=== PATIENT | male | born 1985 | race Caucasian/White ===

== ENCOUNTER 2023-02-19 15:40 | Day surgery (SDC) | payer SELFPAY ==
[2023-02-19] VITALS (10 sets, daily range): BP systolic 133–162; BP diastolic 76–96; PULSE 79–98; RESP 14–18; TEMP 36.6–37.9; O2SAT 94–97; BMI 25.1
--- NOTE | 2023-02-19 16:16 | CRLHL7_ITS ---
For Patients: As a result of the 21st Century Cures Act, medical imaging exams and procedure reports are released immediately into your electronic medical record. You may view this report before your referring provider. If you have questions, please contact your health care provider. INDICATION: LT NECK PAIN/ SORE THROAT TECHNIQUE: CT of the neck with 95 ml iodinated contrast agent. Coronal and sagittal reconstructions are included. COMPARISON: 08/10/2017 CT neck FINDINGS: Enlargement of the left palatine tonsil containing a peripherally enhancing collection measuring 3.6 x 1.9 cm AP x TR x 3 cm CC tonsillar/peritonsillar abscess. This is on the same side as the 2017 exam. Mild enlargement of multiple level 2 and level 3 lymph nodes likely reactive in etiology. The oral cavity, nasopharyngeal, and hypopharyngeal mucosal spaces are normal. The supraglottic, glottic and infraglottic larynx are unremarkable. The airway including the trachea is normal and is patent. The parotid glands, submandibular and sublingual glands are normal in appearance. The thyroid gland is normal in appearance. The vascular structures opacify normally with contrast material. Scattered mild cervical spondylosis without significant neural foraminal stenosis. Moderate neural foramina narrowing at C5-6 due to uncovertebral joint hypertrophy. Mild narrowing at C4-5. Reversal of normal cervical lordosis. Disc osteophyte complex at C4-5, C5-6 and C6-7 without significant spinal canal stenosis. No suspicious lytic or blastic osseous lesions. Visualized paranasal sinuses and mastoid air cells are clear. Visualized orbital and intracranial contents are unremarkable. Supraclavicular regions, mediastinum and soft tissues of the imaged chest wall are unremarkable. Visualized portions of the upper lungs are clear. IMPRESSION: 1. Enlargement of the left palatine tonsil containing a peripherally enhancing collection measuring 3.6 x 1.9 cm AP x TR x 3 cm CC, consistent with tonsillitis and tonsillar/peritonsillar abscess. This is on the same side as the 2017 exam. 2. There is moderate transverse narrowing of the oropharyngeal airway. 3. Mild enlargement of multiple level 2 and level 3 lymph nodes likely reactive in etiology. No suppurative lymph nodes. Please note that all CT scans at this facility use dose modulation, iterative reconstruction, and/or weight-based dosing when appropriate to reduce radiation dose to as low as reasonably achievable. Dictated by Raúl Huang MD @ 02/19/2023 6:30:37 PM (Electronically Signed)
--- NOTE | 2023-02-19 16:19 | ED_ITS ---
HPI - General Adult General Chief complaint: Sore Throat Stated complaint: Possible Tonsil Abscess Time Seen by Provider: 02/19/23 15:46 History of Present Illness HPI narrative: Patient is a pleasant 37 year white male has had a left-sided peritonsillar abscess in the past. He has had a sore throat for a few days negative strep test couple days ago, continues to have difficulty with sleep swallowing, most his pain is on the left side of his throat. He has been unable open his mouth fully. He describes this as a significant sore throat. No rigors. He has a temperature 100.3? Related Data Home Medications Medication Instructions Recorded Confirmed lacosamide 50 mg tablet 50 mg PO BID 02/17/23 02/19/23 levetiracetam 1,000 mg tablet mg PO 02/17/23 02/17/23 Previous Rx's Medication Instructions Recorded Magic Mouthwash 10 ml PO BID-TID #120 mL 02/17/23 (Lidocaine/Benadryl/Maalox) 120 mL suspension naproxen 500 mg tablet 500 mg PO BID 7 days #14 tabs 02/17/23 Allergies Allergy/AdvReac Type Severity Reaction Status Date / Time No Known Drug Allergies Allergy Verified 02/19/23 16:08 Review of Systems Status of ROS: Reports: 6 or more systems reviewed and unremarkable except as noted in History and below [facility] Social History Smoking Status: Never smoker Do you use any of these nicotine containing products: None Second hand tobacco smoke exposure: No How often do you have a drink containing alcohol: never AUDIT-C Alcohol total score: 0 Non-prescribed substance use: denies use service: No Exam Narrative: Exam Narrative: Objective: In general the patient is in mild distress and discomfort vital signs show elevated temperature HEENT shows trismus, his mouth shows some mild redness of the posterior pharynx bilaterally little more swollen on the left neck is supple pulses regular neurologic is grossly nonfocal good peripheral perfusion noted. rapid strep test here earlier this week was negative Const: Vital Signs, click to edit/add: Vital Signs - 24 hr 02/19/23 16:02 Temperature 100.3 F H Pulse Rate [Pulse Oximeter] 83 Respiratory Rate 16 Blood Pressure [Le ft Upper Arm] 133/89 Pulse Oximetry 97 Oxygen Delivery Me thod Room Air Course Vital Signs Vital signs: Initial Vital Signs Temperature 100.3 F H 02/19/23 16:02 Temperature Source Temporal Artery Scan 02/19/23 16:02 Pulse Rate 83 02/19/23 16:02 Respiratory Rate 16 02/19/23 16:02 Blood Pressure 133/89 02/19/23 16:02 Blood Pressure Mean 103 02/19/23 16:02 Blood Pressure Position Sitting 02/19/23 16:02 Pulse Oximetry 97 02/19/23 16:02 Oxygen Delivery Method Room Air 02/19/23 16:02 Vital Signs Temperature 100.3 F H 02/19/23 16:02 Pulse Rate 83 02/19/23 16:02 Respiratory Rate 16 02/19/23 16:02 Blood Pressure 133/89 02/19/23 16:02 Pulse Oximetry 97 02/19/23 16:02 Oxygen Delivery Method Room Air 02/19/23 16:02 Temperature 100.3 F H 02/19/23 16:02 Pulse Rate 83 02/19/23 16:02 Respiratory Rate 16 02/19/23 16:02 Blood Pressure 133/89 02/19/23 16:02 Pulse Oximetry 97 02/19/23 16:02 Oxygen Delivery Method Room Air 02/19/23 16:02 Medical Decision Making MDM Narrative Medical decision making narrative: Patient is a 37 year white male with history of a left peritonsillar abscess with recurrent left-sided severe sore throat pain. He has trismus. He has a fever. At this point will get a CT scan of his neck, labs laboratory studies, IV fluid, IV Solu-Medrol, IV morphine, IV Unasyn. ENT consult as needed. Addendum: [place] [address] he has a low-grade temperature, he does have on CT scan left peritonsillar abscess 3.6 x 1.9 cm x 3 cm. He has been given IV Solu-Medrol IV pain control and IV Unasyn. He feels some improvement. He is able to swallow without severe pain. Will contact Dr. Maier for ENT about treatment patient last ate yesterday did take a sip of water on arrival here Lab Data Labs: Lab Results 02/19/23 02/19/23 Range/Units 06:47 16:42 WBC 16.28 H (4.50-11.00) K/uL RBC 5.06 (4.30-5.90) m/uL Hgb 14.8 (13.5-17.5) gm/dL Hct 44.0 (37.0-53.0) % MCV 87 (80-100) fL MCH 29 (26-34) pg MCHC 34 (32-36) gm/dL RDW Coeff of Gonzalez 12.4 (11.5-15.5) % Plt Count 340 (140-440) K/uL Neut % (Auto) 86.7 H (42.0-72.0) % Lymph % (Auto) 5.3 L (20-44) % Preston % (Auto) 7.4 (0.0-11.0) % Eos % (Auto) 0.3 (0.0-7.0) % Baso % (Auto) 0.1 (0.0-3.0) % Neut # (Auto) 14.10 H (1.7-7.0) K/uL Lymph # (Auto) 0.90 (0.90-2.90) K/uL Preston # (Auto) 1.20 H (0.00-0.90) K/UL Eos # (Auto) 0.00 (0.00-0.50) K/uL Baso # (Auto) 0.00 (0.00-0.30) K/uL Sodium 136 (135-149) mmol/L Potassium 4.4 (3.6-5.1) mmol/L Chloride 100 (96-114) mmol/L Carbon Dioxide 25 (20-32) mmol/L BUN 10 (5-24) mg/dL Creatinine 0.8 (0.5-1.5) mg/dL Estimated Creat Clear 140.10 Estimated GFR 115 ml/min Glucose 91 (60-115) mg/dL Calcium 9.1 (8.4-10.6) mg/dL C-Reactive Protein 8.2 H (0.5-1.0) mg/dL SARS-CoV-2 (PCR) Negative SARS-CoV-2 (Negative) Discharge Plan Discharge Clinical Impression: Pharyngitis Prescriptions: No Action levetiracetam 1,000 mg tablet PO lacosamide 50 mg tablet 50 mg PO BID Magic Mouthwash (Lidocaine/Benadryl/Maalox) 120 mL suspension 10 ml PO BID-TID Qty: 120 0RF Rx Instructions: Lidocaine Viscous 2 % mucosal solution 40 mL; Maalox 200 mg-200 mg-20 mg/5 mL oral suspension 40 mL; Benadryl 12.5 mg/5 mL oral elixir 40 mL; Per 120 mL SWISH AND SPIT. MAY COMPOUND IF FIRST PRODUCT IS NOT AVAILABLE. naproxen 500 mg tablet 500 mg PO BID 7 Days Qty: 14 0RF
[2023-02-19] MEDS: MORPHINE 4 MG/ML INJ IVP (16:43)
[2023-02-19] MEDS: AMPICILLIN/SULBACTAM 3 GM in 0.9 % SODIUM CHLORIDE Mini-bag 100 ML IVPB (16:43)
[2023-02-19] MEDS: METHYLPREDNISOLONE SOD SUCC 62.5 MG/ML (125) 125 MG IVP (16:43)
[2023-02-19] MEDS: 0.9 % SODIUM CHLORIDE 1000 ml 1,000 ML 6000 ML IV (16:43)
[2023-02-19 17:02] LABS: Basophils Percent Auto 0.1 % (0.0-3.0); Eosinophils Percent Auto 0.3 % (0.0-7.0); Hemoglobin* 14.8 gm/dL (13.5-17.5); Immature Granulocytes Pct Auto 0.2 %; Lymphocytes Percent Auto 5.3 % (20-44); Mean Corpuscular HGB Conc 34 gm/dL (32-36); Mean Corpuscular Hemoglobin 29 pg (26-34); Mean Corpuscular Volume 87 fL (80-100); Monocytes Percent Auto 7.4 % (0.0-11.0); Neutrophils Percent Auto 86.7 % (42.0-72.0); Platelet Count* 340 K/uL (140-440); RDW Coefficient of Variation % 12.4 % (11.5-15.5); Red Blood Count 5.06 m/uL (4.30-5.90); White Blood Count* 16.28 K/uL (4.50-11.00)
[2023-02-19 17:45] LABS: Slide Review Reflex No
[2023-02-19 17:48] LABS: Chloride* 100 mmol/L (96-114); Sodium* 136 mmol/L (135-149)
[2023-02-19 17:49] LABS: Potassium* 4.4 mmol/L (3.6-5.1)
[2023-02-19 17:51] LABS: Creatinine* 0.8 mg/dL (0.5-1.5); Estimated Glomerular Filt Rate 115 ml/min
[2023-02-19 17:52] LABS: Blood Urea Nitrogen* 10 mg/dL (5-24); Calcium* 9.1 mg/dL (8.4-10.6); Carbon Dioxide* 25 mmol/L (20-32); Glucose* 91 mg/dL (60-115)
[2023-02-19 17:55] LABS: C Reactive Protein* 8.2 mg/dL (0.5-1.0)
[2023-02-19 19:22] LABS: SARS PCR* Negative SARS-CoV-2 (Negative)
--- NOTE | 2023-02-19 21:00 | W.ANESCHARGE ---
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
--- NOTE | 2023-02-20 00:23 | PC.NURSE ---
Pt's prescriptions sent to pharmacy which isn't open until morning. Pt was sent home with an [facility] prescription of 4 tabs of oxycodone 5mg, 1-2 tabs as needed every 4-6 hours for pain control overnight until he fills his prescription in the AM. Prescription was given by Dr. Samina Mercer.
== END 2023-02-19 23:32 | disposition home or self-care (01) ==
LOC: ED 19:34 → SS 20:28 → MEDSURG 21:17
PROVIDERS: Emergency Provider Family Medicine; Visit Provider Otolaryngology
PROC: (CPT 42960; principal; 2023-02-19 18:45)
DX: J36 Peritonsillar abscess (principal)
CPT/HCPCS: 42700; 00170; 36415; 70491; 80048; 85025; 86140; 87070; 87075; 87205; 87635; 99140; 99284; J0295; J0330; J1100; J2250; J2270; J2405; J2704; J2930; J3010; J3490; J7030; Q9967

== ENCOUNTER 2024-07-28 13:23 | Outpatient (CLI) | payer OTHER, SELFPAY | END 2024-07-28 13:24 | disposition home or self-care (01) | PROVIDERS: Visit Provider Family Medicine | DX: Z01.818 Encounter for other preprocedural examination (principal); G40.909 Epilepsy, unspecified, not intractable, without status epilepticus; Z13.6 Encounter for screening for cardiovascular disorders | CPT/HCPCS: 80061; 80076; 80175; 80177 ==

== ENCOUNTER 2025-01-04 11:48 | Emergency (ER) | payer BC, SELFPAY ==
[2025-01-04] VITALS (9 sets, daily range): BP systolic 138–163; BP diastolic 81–112; PULSE 49–71; RESP 16–18; TEMP 36.1; O2SAT 94–98; BMI 26.4
--- OUTSIDE RECORDS SUMMARY | 2025-01-04 11:51 | XMS_ITS | Clinical Summary ---
Author Organization [facility] Address [address] [place] [address] Care Team Providers Care Business Information Analyst Name Role Phone Pcp, No Primary Care Provider Unavailabl e Allergies No known active allergies Medications levETIRAcetam (KEPPRA) 500 mg tablet Take 2,000 mg by mouth. Active Active Problems Problem Noted Date Diagnosed Date ACNE 10/17/2004 MONONUCLEOSIS, INFECTIOUS 03/20/2000 Immunizations Name Administration Dates Next Due DTP 03/31/1985,1983,1983 ,1983 Hepatitis B (Peds) 12/08/2000,07/02/2000, 000 MMR 05/28/1996,09/14/1984 Oral Polio Vaccine 03/31/1985,1983, 983,1983 Td (Age >=7 Years) 12/16/1995 Family History Medical History Relation Name Comments Genetic Other 1 Diabetes.~Thyro id disease. 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 Gender Identity Not on file Sexual Orientation Not on file Obstetrics History Last Filed Vital Signs Vital Sign Reading Time Taken Comments Blood Pressure 145/78 07/01/2021 6:49 PM CDT Pulse 70 07/01/2021 6:49 PM CDT Temperature 36.7 C (98.1 F) 07/01/2021 6:49 PM CDT Respiratory Rate 18 07/01/2021 6:49 PM CDT Oxygen Saturation 99% 07/01/2021 6:49 PM CDT Inhaled Oxygen Concentration - - Weight 81.6 kg (180 lb) 07/01/2021 6:49 PM CDT Height 185.4 cm (6' 1) 07/01/2021 6:49 PM CDT Body Mass Index 23.75 07/01/2021 6:49 PM CDT Plan of Treatment Health Maintenance Due Date Last Done Comments Tdap 1994 Depression screening for age 12+ 1995 HIV for age 15-65 1998 Hepatitis C screening for ag e 18-79 2001 Tetanus booster 12/16/2005 12/16/1995 Lipids for age 35-44 2018 BMI (ht and wt on same day) for age 18+ 07/01/2022 07/01/2021 COVID-19 vaccine series (2023- season) 2024 Influenza for age 9-49 07/04/2024 Pneumococcal series for age 6-49 Aged Out No longer eligible based on patient's age to complete this topic Insurance [facility] Care Teams Business Information Analyst Relationship Specialty Start Date End Date Pcp, No . PCP - General 10/16/23
--- OUTSIDE RECORDS SUMMARY | 2025-01-04 11:51 | XMS_ITS | Clinical Summary ---
Author Organization [facility] Address [address] [place] [id number] Care Team Providers Care Correctional Officer Chief Name Role Phone Xavi Rondon MD Primary Care Provider + Allergies No known active allergies Medications Multiple Vitamins-Minera ls (MULTIVITAL PO) Take 1 tablet by mouth daily Active levETIRAcetam (KEPPRA) 500 MG tablet Take 2,000 mg by mouth 2 times daily Active Cholecalciferol 3000 UNITS TABS Take 3,000 Units by mouth daily Active metoclopramide (REGLAN) 5 MG tablet Take 2 tablets (10 mg) by mouth 3 times daily as needed (nausea) 10 tablet 06/12/2022 Active Active Problems Problem Noted Date Diagnosed Date Status epilepticus 05/20/2017 Resolved Problems Problem Noted Date Diagnosed Date Resolved Date Seizure 12/26/2017 12/26/2017 Social History Tobacco Use Types Packs/Day Years Used Date Smoking Tobacco: Former Smokeless Tobacco: Never Alcohol Use Standard Drinks/Week Comments Yes 0 (1 standard drink = 0.6 oz pur e alcohol) Adolescent Education Answer Date Record ed Getting School Help Needed Not on file 08/02 Sex and Gender Information Value Date Recorded Sex Assigned at Not on file 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 Gender Identity Not on file Sexual Orientation Not on file Last Filed Vital Signs Vital Sign Reading Time Taken Comments Blood Pressure 128/84 06/12/2022 10:15 PM CDT Pulse 62 06/12/2022 10:15 PM CDT Temperature 36.6 C (97.9 F) 06/12/2022 5:39 PM CDT Respiratory Rate 18 06/12/2022 10:15 PM CDT Oxygen Saturation 99% 06/12/2022 10:15 PM CDT Inhaled Oxygen Concentration - - Weight 84.2 kg (185 lb 10 oz) 12/26/2017 3:00 AM CHIEF CRNA Height 185.4 cm (6' 1) 12/26/2017 1:08 AM CHIEF CRNA Body Mass Index 24.49 12/26/2017 1:08 AM CHIEF CRNA Plan of Treatment Health Maintenance Due Date Last Done Comments ADVANCE CARE PLANNING 1983 ANNUAL REVIEW OF HM ORDERS 1983 YEARLY PREVENTIVE VISIT 1986 DTAP/TDAP/TD IMMUNIZATION (2 - Tdap) 12/17/1995 12/16/1995 HIV SCREENING 1998 HEPATITIS C SCREENING 2001 LIPID 2023 COVID-19 Vaccine ( season) 2024 INFLUENZA VACCINE (#1) 2024 PHQ-2 (once per calendar year) 2024 GLUCOSE 06/12/2025 06/12/2022, 2 01/2018, 12/26/2017, Additional history exists ZOSTER IMMUNIZATION (1 of 2) 2033 RSV VACCINE (1 - 1-dose 75+ series) 2058 HEPATITIS B IMMUNIZATION Completed 001, 07/02/2000, 06/03/2000 HPV IMMUNIZATION Aged Out No longer e ligible based on patient's age to complete this topic MENINGITIS IMMUNIZATION Aged Out No l onger eligible based on patient's age to complete this topic Pneumococcal Vaccine: Pediatrics (0 to 5 Years) and At-Risk Patients (6 to 49 Years) Aged Out No longer eligible based on patient's age to complete this topic RSV MONOCLONAL ANTIBODY Aged Out No l onger eligible based on patient's age to complete this topic Procedures Procedure Name Priority Date/Time Associated Diagnosis Comments COMPREHENSIVE METABOLIC PANEL STAT 06/12/2022 6:51 PM CDT from Last 3 Months or Most Recently Relevant to Health Maintenance Results * (ABNORMAL) Comprehensive metabolic panel (06/12/2022 6:51 PM CDT) Sodium 139 136 - 145 mmol/L 06/12/2022 7:27 PM CDT LABORATORY Potassium 4.0 3.4 - 5.3 mmol/L 06/12/2022 7:27 PM CDT LABORATORY Comment:Specimen slightly he molyzed, potassium may be falsely elevated. Creatinine 0.74 0.67 - 1.17 mg/dL 06/12/2022 7:27 PM CDT LABORATORY Urea Nitrogen 15.2 6.0 - 20.0 mg/dL 06/12/2022 7:27 PM T LABORATORY Chloride 102 98 - 107 mmol/L 06/12/2022 7:27 PM CDT LABORATORY Carbon Dioxide (CO2) 23 22 - 29 mmol/L 06/12/2022 7:27 PM CDT LABORATORY Anion Gap 14 7 - 15 mmol/L 06/12/2022 7:27 PM T LABORATORY Glucose 124(H) 70 - 99 mg/dL 06/12/2022 7:27 PM CDT LABORATORY Calcium 9.6 8.6 - 10.0 mg/dL 06/12/2022 7:27 PM CDT LABORATORY Protein Total 7.4 6.4 - 8.3 g/dL 06/12/2022 7:27 PM CDT LABORATORY Albumin 4.9 3.5 - 5.2 g/dL 06/12/2022 7:27 PM CDT LABORATORY Bilirubin Total 0.6 <=1.2 mg/dL 06/12/2022 7:27 PM CDT LABORATORY Alkaline Phosphatase 63 40 - 129 U/L 06/12/2022 7:27 PM CDT LABORATORY AST 26 10 - 50 U/L 06/12/2022 7:27 PM CDT LABORATORY Comment:Specimen is hemolyze d which can falsely elevate AST. Analysis of a non-hemolyzed specimen may result in a lower value. ALT 45 10 - 50 U/L 06/12/2022 7:27 PM CDT LABORATORY GFR Estimate >90 >60 mL/min/1.7 3m2 06/12/2022 7:27 PM CDT LABORATORY Comment:Effective October 042020 eGFRcr in adults is calculated using the 2020 CKD-EPI creatinine equation which includes age and gender (Adam et al., NEJM, DOI: 10.1056/HHVLtp9274100) Blood STRUCTURE OF RIGHT UPPER LIMB / Unknown Venipuncture / Unknown 06/12/2022 6:51 PM CDT 06/12/2022 6:54 PM CDT us Moustapha Amado PA-C LAB - BLOOD ORDERABLES Final Result LABORATORY [facility] [address] Lab (1st floor, no room number) [place] [address], [facility] [phone] from Last 3 Months or Most Recently Relevant to Health Maintenance Insurance [facility] Advance Directives For more information, please contact: [phone] * Full Code (Latest Code Status on File) Date Activated Date Inactivated Comments 12/26/2017 3:50 AM 12/26/2017 6:08 PM * Full Code Date Activated Date Inactivated Comments 05/20/2017 9:41 PM 05/23/2017 5:57 PM Care Teams Correctional Officer Chief Relationship Specialty Start Date End Date Xavi Rondon MD PCP - General 10/10/17
--- NOTE | 2025-01-04 12:08 | ED.GENADULT ---
HPI - General Adult General Chief complaint: Nausea/Vomiting Stated complaint: extreme L side and back pain, diarrhea, vomiting Time Seen by Provider: 01/04/25 12:07 History of Present Illness HPI narrative: patient is having severe abdominal pain on the LLQ. has been rating to left flank. has been having diarrhea, vomiting. hx of seizure and vomited medication up. 39-year-old man presenting to the emergency department with concern of left lower abdominal pain. Not radiating into his back. This is 2nd day and has only been escalating. Began vomiting this morning along with diarrhea as well. No hematochezia or hematemesis described. No fever. Underlying history of seizure disorder and has been unable to keep his meds down. Mid left abdominal pain is the major issue. Related Data Home Medications ?Medication ?Instructions ?Recorded ?Confirmed levetiracetam 1,000 mg tablet 1,500 mg PO Q12H 02/17/23 01/04/25 lamotrigine 100 mg tablet 100 mg PO BID 01/04/25 01/04/25 Previous Rx's ?Medication ?Instructions ?Recorded hyoscyamine sulfate 0.125 mg tablet 0.25 mg (2 x 0.125 mg) PO QID PRN 01/04/25 Abdominal cramping #20 tabs Allergies Allergy/AdvReac Type Severity Reaction Status Date / Time No Known Drug Allergies Allergy Verified 01/04/25 13:11 Review of Systems Status of ROS: Reports: 6 or more systems reviewed and unremarkable except as noted in History and below PFSH PFSH Surgical History S/P left inguinal hernia repair ?Z98.890 - Other specified postprocedural states (ICD-10) ?Z87.19 - Personal history of other diseases of the digestive system (ICD-10) History of peritonsillar abscess drainage ?Z98.890 - Other specified postprocedural states (ICD-10) Social History Smoking Status: Never smoker Do you use any of these nicotine containing products: None Second hand tobacco smoke exposure: No How often do you have a drink containing alcohol: never AUDIT-C Alcohol total score: 0 Non-prescribed substance use: denies use service: No Exam Narrative: Exam Narrative: Looks quite uncomfortable. Prefers to keep his eyes closed. Breathing little tremorous. Lungs appear to be clear. Heart is in elevated rate and regular rhythm. Mouth is moist. Little blackening to the top of tongue. Abdomen is with present bowel sounds is diffusely quite tender. He has guarding in the left mid abdomen and tender to percussion left flank as well. Extremities are well perfused. No edema. Const: Vital Signs, click to edit/add: Vital Signs - 24 hr 01/04/25 11:58 01/04/25 13:32 01/04/25 14:02 Temperature 96.9 F L Pulse Rate 70 60 Pulse Rate [Pulse Oximeter] 67 Respiratory Rate 18 Blood Pressure 162/111 H 142/100 H Blood Pressure [Ri ght Upper Arm] 146/102 H Pulse Oximetry 94 98 98 Oxygen Delivery Me thod Room Air 01/04/25 14:33 01/04/25 15:01 01/04/25 15:31 Temperature Pulse Rate 68 68 57 L Pulse Rate [Pulse Oximeter] Respiratory Rate 16 Blood Pressure 159/95 H 138/81 158/106 H Blood Pressure [Ri ght Upper Arm] Pulse Oximetry 96 94 96 Oxygen Delivery Me thod 01/04/25 16:02 01/04/25 16:31 01/04/25 16:45 Temperature Pulse Rate 51 L 49 L 71 Pulse Rate [Pulse Oximeter] Respiratory Rate Blood Pressure 156/111 H 163/112 H Blood Pressure [Ri ght Upper Arm] Pulse Oximetry 97 96 96 Oxygen Delivery Me thod Documenting provider has reviewed patient's vital signs: yes Course Vital Signs Vital signs: Initial Vital Signs Temperature 96.9 F L 01/04/25 11:58 Temperature Source Temporal Artery Scan 01/04/25 11:58 Pulse Rate 67 01/04/25 11:58 Respiratory Rate 18 01/04/25 11:58 Blood Pressure 146/102 H 01/04/25 11:58 Blood Pressure Mean 116 H 01/04/25 11:58 Blood Pressure Position Sitting 01/04/25 11:58 Pulse Oximetry 94 01/04/25 11:58 Oxygen Delivery Method Room Air 01/04/25 11:58 Vital Signs Temperature 96.9 F L 01/04/25 11:58 Pulse Rate 67 01/04/25 11:58 Respiratory Rate 18 01/04/25 11:58 Blood Pressure 146/102 H 01/04/25 11:58 Pulse Oximetry 94 01/04/25 11:58 Oxygen Delivery Method Room Air 01/04/25 11:58 Temperature 96.9 F L 01/04/25 11:58 Pulse Rate 71 01/04/25 16:45 Respiratory Rate 16 01/04/25 15:01 Blood Pressure 163/112 H 01/04/25 16:31 Pulse Oximetry 96 01/04/25 16:45 Oxygen Delivery Method Room Air 01/04/25 11:58 Medications Administered Medications: Discontinued Medications Generic Name Dose Route Start Last Admin Trade Name Freq PRN Reason Stop Dose Admin Hydromorphone HCl 0.5 mg 01/04/25 14:29 01/04/25 14:38 Hydromorphone 0.5 Mg/0.5 Ml Inj IVP 01/04/25 14:30 0.5 mg ONCE ONE Administration Hyoscyamine 0.25 mg 01/04/25 15:47 01/04/25 15:57 Hyoscyamine Sulfate 0.125 Mg Tab SUBLINGUAL 01/04/25 15:48 0.25 mg ONCE ONE Administration Sodium Chloride 1,000 mls @ 1,000 mls/hr 01/04/25 12:16 01/04/25 14:06 0.9 % Sodium Chloride 1000 Ml IV 01/04/25 13:15 Infused .Q1H ONE Infusion Lactated Ringer's 1,000 mls @ 1,000 mls/hr 01/04/25 13:59 01/04/25 15:03 Lactated Ringers 1000 Ml IV 01/04/25 14:58 Infused .Q1H ONE Infusion Levetiracetam 2,000 mg/ Sodium 120 mls @ 480 mls/hr 01/04/25 14:29 01/04/25 15:05 Chloride IVPB 01/04/25 14:30 Infused ONCE ONE Infusion Ketamine HCl 20 mg/ Sodium 100.2 mls @ 200.4 mls/hr 01/04/25 15:47 01/04/25 16:45 Chloride IVPB 01/04/25 15:48 Infused ONCE ONE Infusion Ketorolac Tromethamine 30 mg 01/04/25 12:16 01/04/25 12:42 Ketorolac 30 Mg/Ml Inj IVP 01/04/25 12:17 30 mg ONCE ONE Administration Lorazepam 0.5 mg 01/04/25 14:29 01/04/25 14:41 Lorazepam 2 Mg/Ml Inj IVP 01/04/25 14:30 0.5 mg ONCE ONE Administration Morphine Sulfate 4 mg 01/04/25 12:16 01/04/25 12:44 Morphine 4 Mg/Ml Inj IVP 01/04/25 12:17 4 mg ONCE ONE Administration Ondansetron HCl 4 mg 01/04/25 12:16 01/04/25 12:41 Ondansetron 2 Mg/Ml Inj IVP 01/04/25 12:17 4 mg ONCE ONE Administration Medical Decision Making MDM Narrative Medical decision making narrative: Appears to have some gastroenteritis. Possible colitis. I suspect some degree of the guarding is related to stress related pain. Evaluate for ureteral stone and colic or urinary tract infection. INDICATION: Severe left mid abdominal pain with nausea vomiting and diarrhea. COMPARISON: None. TECHNIQUE: CT of the abdomen and pelvis with intravenous contrast. Multiplanar axial, coronal, and sagittal reformats were reconstructed. Contrast: 98 mL Isovue 370. FINDINGS: Lung bases: Mild bibasilar atelectasis. Liver: In segment 6 there is a 2.5 centimeter liver lesion that has nodular discontinuous peripheral hyperenhancement. In a young patient without any history of malignancy or risk factors for primary hepatic malignancy, this is consistent with a benign hepatic hemangioma. No other liver lesions. Minimal fatty infiltration at the falciform ligament. Patent hepatic vasculature. Normal liver morphology. Gallbladder and bile ducts: Normal gallbladder. No bile duct dilation. Pancreas: Normal. Spleen: Normal. Adrenal glands: Normal. Kidneys: Normal parenchyma. No cyst or solid mass. No calculi. No urinary tract dilation. Urinary bladder: Normal. Pelvis: No cyst or mass. Vessels: Normal. Bowel: Very minimal mucosal hyperenhancement in the descending colon with mild mucosal edema and no overall wall thickening or adjacent inflammatory stranding. No pneumatosis. No dilated or inflamed small bowel. Normal appendix. Mild stool burden. Lymph nodes: No adenopathy. Peritoneum: No ascites. Abdominal wall: Left inguinal hernia that originates lateral to the epigastric vessels. Contains a small amount of fat and no bowel. Bones: No fractures. No focal worrisome bone lesions. IMPRESSION: 1. Very mild appearing colitis without ischemia or obstruction. No findings specific to inflammatory bowel disease. 2. There is a 2.5 centimeter liver lesion. In a young patient without any history of malignancy or risk factors for primary hepatic malignancy, appearance is consistent with a benign hepatic hemangioma. If further imaging is clinically warranted, MR abdomen without and with IV contrast liver mass protocol can be obtained. Please note that all CT scans at this facility use dose modulation, iterative reconstruction, and/or weight-based dosing when appropriate to reduce radiation dose to as low as reasonably achievable. Dictated by Dina Farooq MD @ 01/04/2025 1:27:12 PM I have reviewed labs and imaging with Mr. Winn. Notes known history of hemangioma in his liver. No reason to suggest that colitis related to more of an inflammatory bowel disorder. No recent antibiotics to predisposed to C diff. Is still uncomfortable. Somewhat tense. I think it would be prudent to dose at least some of his antiepileptic medication. Ordered for 2 g of Keppra. Still with nausea and pain. Will be treating with Ativan as well and low dose of Dilaudid appears to have abdominal pain secondary to colitis. Labs are overall reassuring with mildly elevated lactate and white count. Did temporarily improve. Return though of nausea and pain. Given a dose of hyoscyamine and pain dose ketamine. Nausea transiently escalated but overall is improved vertically with regard to pain. Tolerating juice box and Jell-O. Stable vitals and I think safe for discharge. See patient discharge plan for further discussion Focus on hydration. Slow advance of diet over the next 24-36 hours. Diluted juices, soup broth, Jell-O, toast, crackers, toast. If needed for diarrhea as long as no blood in your stool or fever, can take loperamide. Can take ibuprofen or acetaminophen (acetaminophen up to 1000 mg per dose) for pain. Prescribing Zofran and Percocet from [facility]. Remember that each tablet of Percocet contains 325 mg of acetaminophen. Return for intractable diarrhea or vomiting, uncontrolled pain, associated fever Medical Records Medical records reviewed: Yes I reviewed the patient's medical records Lab Data Lab results reviewed: Yes I reviewed the patient's lab results Labs: Lab Results 01/04/25 01/04/25 Range/Units 12:29 15:00 WBC 11.70 H (4.50-11.00) K/uL RBC 5.74 (4.30-5.90) m/uL Hgb 16.8 (13.5-17.5) gm/dL Hct 49.3 (37.0-53.0) % MCV 86 (80-100) fL MCH 29 (26-34) pg MCHC 34 (32-36) gm/dL RDW Coeff of Gonzalez 13.1 (11.5-15.5) % Plt Count 354 (140-440) K/uL Neut % (Auto) 80.8 H (42.0-72.0) % Lymph % (Auto) 13.1 L (20-44) % Hale % (Auto) 4.7 (0.0-11.0) % Eos % (Auto) 0.8 (0.0-7.0) % Baso % (Auto) 0.1 (0.0-3.0) % Neut # (Auto) 9.50 H (1.7-7.0) K/uL Lymph # (Auto) 1.50 (0.90-2.90) K/uL Hale # (Auto) 0.50 (0.00-0.90) K/UL Eos # (Auto) 0.10 (0.00-0.50) K/uL Baso # (Auto) 0.00 (0.00-0.30) K/uL Abs Immat Gran (auto) 0.10 (0.00-0.30) K/uL Imm/Tot Granulo (auto) 0.5 % Sodium 138 (135-149) mmol/L Potassium 4.2 (3.6-5.1) mmol/L Chloride 102 (96-114) mmol/L Carbon Dioxide 24 (20-32) mmol/L Anion Gap 12 (7-15) mEq/L BUN 18 (5-24) mg/dL Creatinine 1.0 (0.5-1.5) mg/dL Estimated Creat Clear 109.86 Estimated GFR 97 ml/min Glucose 121 H (60-115) mg/dL Lactate 2.0 H (0.5-1.9) mmol/L Calcium 9.5 (8.4-10.6) mg/dL C-Reactive Protein < 0.5 L (0.5-1.0) mg/dL SARS-CoV-2 (PCR) Negative SARS-CoV-2 (Negative) Influenza Type A (PCR) Negative PCR FLU A (Negative) Influenza Type B (PCR) Negative PCR FLU B (Negative) RSV (PCR) Negative PCR RSV (Negative) Discharge Plan Discharge Clinical Impression: Abdominal pain, Colitis, Dehydration Patient Disposition: Home w/ Parent or Adult Condition: Improved Additional Instructions: Focus on hydration. Slow advance of diet over the next 24-36 hours. Diluted juices, soup broth, Jell-O, toast, crackers, toast. If needed for diarrhea as long as no blood in your stool or fever, can take loperamide. Can take ibuprofen or acetaminophen (acetaminophen up to 1000 mg per dose) for pain. Prescribing Zofran and Percocet from [facility]. Remember that each tablet of Percocet contains 325 mg of acetaminophen. Return for intractable diarrhea or vomiting, uncontrolled pain, associated fever Prescriptions: New hyoscyamine sulfate 0.125 mg tablet 0.25 mg PO QID PRN (Reason: Abdominal cramping) Qty: 20 0RF No Action levetiracetam 1,000 mg tablet 1,500 mg PO Q12H lamotrigine 100 mg tablet 100 mg PO BID Follow Up/Referrals: Provider,Not a Local [Primary Care Provider] - Stand Alone Forms: [employer] Info Instructions
--- OUTSIDE RECORDS SUMMARY | 2025-01-04 12:37 | XMS_ITS | Clinical Summary ---
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 Gender Identity Not on file Sexual Orientation [...] (185 lb 10 oz) 12/26/2017 3:00 AM CARPET INSPECTOR FINISHED Height 185.4 cm (6' 1) 12/26/2017 1:08 AM CARPET INSPECTOR FINISHED Body Mass Index 24.49 12/26/2017 1:08 AM CARPET INSPECTOR FINISHED Plan of Treatment Health Maintenance Due Date [...] and gender (Adam et al., NEJM, DOI: [id number]) Blood STRUCTURE OF RIGHT UPPER LIMB / Unknown Venipuncture / Unknown 06/12/2022 6:51 PM CDT 06/12/2022 6:54 PM CDT us Moustapha Amado PA-C LAB - BLOOD ORDERABLES Final Result LABORATORY [facility] [address] Lab (1st floor, no room number) [place] [address], [facility] [phone] from Last 3 Months or Most Recently Relevant to Health Maintenance Insurance [facility] Advance Directives For more information, please contact: [phone] * Full Code (Latest Code Status on File) Date Activated Date Inactivated Comments 12/26/2017 3:50 AM 12/26/2017 6:08 PM * Full Code Date Activated Date Inactivated Comments 05/20/2017 9:41 PM 05/23/2017 5:57 PM Care Teams Radio Station Engineer Relationship Specialty Start Date End Date Xavi Rondon MD PCP - General 10/10/17
--- OUTSIDE RECORDS SUMMARY | 2025-01-04 12:37 | XMS_ITS | Clinical Summary ---
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 Care Teams Hotel Office Manager Relationship Specialty Start Date End Date Pcp, No . PCP - General 10/16/23
[2025-01-04 12:38] LABS: Basophils Percent Auto 0.1 % (0.0-3.0); Eosinophils Percent Auto 0.8 % (0.0-7.0); Hematocrit 49.3 % (37.0-53.0); Hemoglobin* 16.8 gm/dL (13.5-17.5); Immature Granulocytes Pct Auto 0.5 %; Lymphocytes Percent Auto 13.1 % (20-44); Mean Corpuscular HGB Conc 34 gm/dL (32-36); Mean Corpuscular Hemoglobin 29 pg (26-34); Mean Corpuscular Volume 86 fL (80-100); Monocytes Percent Auto 4.7 % (0.0-11.0); Neutrophils Percent Auto 80.8 % (42.0-72.0); Platelet Count* 354 K/uL (140-440); RDW Coefficient of Variation % 13.1 % (11.5-15.5); Red Blood Count 5.74 m/uL (4.30-5.90)
[2025-01-04 12:39] LABS: Slide Review Reflex No
[2025-01-04] MEDS: 0.9 % SODIUM CHLORIDE 1000 ml 1,000 ML IV (12:39)
[2025-01-04] MEDS: ONDANSETRON 2 MG/ML inj 4 MG IVP (12:41)
[2025-01-04] MEDS: KETOROLAC 30 MG/ML inj IVP (12:42)
[2025-01-04] MEDS: MORPHINE 4 MG/ML INJ IVP (12:44)
[2025-01-04 12:56] LABS: Chloride* 102 mmol/L (96-114); Potassium* 4.2 mmol/L (3.6-5.1); Sodium* 138 mmol/L (135-149)
[2025-01-04 12:58] LABS: Blood Urea Nitrogen* 18 mg/dL (5-24); Est. Creatinine Clearance* 109.86; Estimated Glomerular Filt Rate 97 ml/min
[2025-01-04 12:59] LABS: Anion Gap 12 mEq/L (7-15); Calcium* 9.5 mg/dL (8.4-10.6); Carbon Dioxide* 24 mmol/L (20-32); Glucose* 121 mg/dL (60-115)
[2025-01-04 13:04] LABS: C Reactive Protein* < 0.5 mg/dL (0.5-1.0)
[2025-01-04] MEDS: LACTATED RINGERS 1000 ML 1,000 ML IV (14:10)
[2025-01-04] MEDS: HYDROmorphone 0.5 mg/0.5 ml inj IVP (14:38)
[2025-01-04] MEDS: LORazepam 2 MG/ML inj 0.5 MG IVP (14:41)
[2025-01-04 15:50] LABS: PCR FLU A Negative PCR FLU A (Negative); PCR FLU B Negative PCR FLU B (Negative); PCR RSV Negative PCR RSV (Negative); SARS PCR* Negative SARS-CoV-2 (Negative)
[2025-01-04] MEDS: HYOSCYAMINE SULFATE 0.125 MG TAB 0.25 MG SUBLINGUAL (15:57)
[2025-01-04] MEDS: KETAMINE 50 MG/0.5 ML 20 MG in 0.9 % SODIUM CHLORIDE 100 ml 100 ML 200.4 MG IVPB (15:58)
== END 2025-01-04 17:12 | disposition home or self-care (01) ==
PROVIDERS: Emergency Provider Family Medicine
DX: R10.9 Unspecified abdominal pain (principal); K52.9 Noninfective gastroenteritis and colitis, unspecified; E86.0 Dehydration
CPT/HCPCS: 36415; 74177; 80048; 81001; 83605; 85025; 86140; 87631; 96365; 96375; 99284; 99285; A9270; J1171; J1885; J1953; J2060; J2270; J2405; J3490; J7030; J7120; Q9967

== ENCOUNTER 2025-03-20 14:55 | Day surgery (SDC) | payer BC, SELFPAY ==
[2025-03-20] VITALS (21 sets, daily range): BP systolic 100–166; BP diastolic 47–98; PULSE 57–99; RESP 14–20; TEMP 37.3–38.1; O2SAT 93–99; BMI 27.3
--- NOTE | 2025-03-20 15:26 | ED_ITS ---
HPI - General Adult General Date Seen: 03/20/25 Chief complaint: Sore Throat Stated complaint: abscess in throat Time Seen by Provider: 03/20/25 15:17 History of Present Illness HPI narrative: Patient is a 39-year-old man who is here with pain in the left side of his throat. It has been hurting for about 5 days, seen in clinic a few days ago and started on Bactrim but he says he is continuing to get worse. He does have a history of peritonsillar abscess with surgical drainage x2, this feels similar. He can not open his mouth as well as normal, has had fevers up to 101 at home. He says he has not eaten anything in 3 days although he has been trying to get in some fluids. Last time they drained his abscess he says they recommended taking on his tonsils but he did have good insurance at the time so he declined. He told me he did not have other significant health history but I do note prior history of seizure disorder on his medical history. He has been taking ibuprofen and Tylenol for pain. He does not smoke or drink. Related Data Home Medications ?Medication ?Instructions ?Recorded ?Confirmed levetiracetam 1,000 mg tablet 1,500 mg PO Q12H 02/17/23 03/20/25 lamotrigine 100 mg tablet 100 mg PO BID 01/04/25 03/20/25 Previous Rx's ?Medication ?Instructions ?Recorded amoxicillin 875 mg-potassium 1 tab PO BID 10 days #20 tabs 03/15/25 clavulanate 125 mg tablet Allergies Allergy/AdvReac Type Severity Reaction Status Date / Time No Known Drug Allergies Allergy Verified 03/20/25 16:23 Review of Systems Status of ROS: Reports: 6 or more systems reviewed and unremarkable except as noted in History and below [facility] Medical History (Updated 03/20/25 @ 16:29 by Rebeca Mcpherson MD) Peritonsillar abscess ?J36 - Peritonsillar abscess (ICD-10) Surgical History S/P left inguinal hernia repair ?Z98.890 - Other specified postprocedural states (ICD-10) ?Z87.19 - Personal history of other diseases of the digestive system (ICD-10) History of peritonsillar abscess drainage ?Z98.890 - Other specified postprocedural states (ICD-10) Social History Smoking Status: Never smoker Do you use any of these nicotine containing products: None Second hand tobacco smoke exposure: No How often do you have a drink containing alcohol: never AUDIT-C Alcohol total score: 0 Non-prescribed substance use: denies use service: No Exam Narrative: Exam Narrative: Vital signs reviewed In general, alert, nontoxic mid age man. He is slightly shaky, he says this is because he does not like hospitals and also he has not eaten in several days. Head: Normocephalic, atraumatic. Eyes: Sclera clear. Pupils equal and reactive. ENT: Mucous membranes moist. Trismus, posterior pharyngeal erythema with edema and asymmetric swelling in the left posterior pharynx. Exam somewhat limited by trismus. Airway patent. Neck: Supple without significant adenopathy but he does have tenderness and a little bit of swelling noted on the left. No stridor. Heart: Regular rate and rhythm without murmur. Lungs: Clear. No increased work of breathing, crackles or wheezes. Abdomen: Soft, nontender to palpation. Extremities: Well perfused, pulses intact. No significant edema. Neurologic: Alert, conversant. Speech fluent, face symmetric. Moves all extremities equally. Skin: Warm, dry well perfused. Affect: Normal. Const: Vital Signs, click to edit/add: Vital Signs - 24 hr 03/20/25 15:07 03/20/25 15:40 03/20/25 15:50 Temperature 100.0 F H Pulse Rate [Pulse Oximeter] 99 62 57 L Respiratory Rate 16 16 16 Blood Pressure [Ri ght Upper Arm] 166/94 H 141/81 H 100/47 L Pulse Oximetry 96 99 97 Oxygen Delivery Me thod Room Air Nasal Cannula 03/20/25 16:00 Temperature Pulse Rate [Pulse Oximeter] 84 Respiratory Rate 16 Blood Pressure [Ri ght Upper Arm] 137/79 Pulse Oximetry 95 Oxygen Delivery Me thod Room Air Course Course ED Course: Will place an IV here, give morphine, Zofran, L of IV saline. CT soft tissue neck ordered with contrast along with basic labs. Case discussed with Dr. Munroe given concern for peritonsillar abscess on the left. Dr. Munroe and actually came and evaluated the patient, decided against a CT as patient clinically does appear to have an abscess. White count mildly elevated at 12.6, other labs pending at this time. He did not actually get any meds as they were talking with him and then took him to the OR. Hemodynamically stable, no additional complaints. Vital Signs Vital signs: Initial Vital Signs Temperature 100.0 F H 03/20/25 15:07 Temperature Source Temporal Artery Scan 03/20/25 15:07 Pulse Rate 99 03/20/25 15:07 Respiratory Rate 16 03/20/25 15:07 Blood Pressure 166/94 H 03/20/25 15:07 Blood Pressure Mean 118 H 03/20/25 15:07 Pulse Oximetry 96 03/20/25 15:07 Oxygen Delivery Method Room Air 03/20/25 15:07 Vital Signs Temperature 100.0 F H 03/20/25 15:07 Pulse Rate 99 03/20/25 15:07 Respiratory Rate 16 03/20/25 15:07 Blood Pressure 166/94 H 03/20/25 15:07 Pulse Oximetry 96 03/20/25 15:07 Oxygen Delivery Method Room Air 03/20/25 15:07 Temperature 100.0 F H 03/20/25 15:07 Pulse Rate 84 03/20/25 16:00 Respiratory Rate 16 03/20/25 16:00 Blood Pressure 137/79 03/20/25 16:00 Pulse Oximetry 95 03/20/25 16:00 Oxygen Delivery Method Room Air 03/20/25 16:00 Medications Administered Medications: Discontinued Medications Generic Name Dose Route Start Last Admin Trade Name Freq PRN Reason Stop Dose Admin Sodium Chloride 1,000 mls @ 1,000 mls/hr 03/20/25 15:30 03/20/25 16:29 0.9 % Sodium Chloride 1000 Ml IV 03/20/25 16:29 Infused .Q1H SHILOH Infusion Morphine Sulfate 4 mg 03/20/25 15:21 03/20/25 16:28 Morphine 4 Mg/Ml Inj IVP 03/20/25 15:22 Not Given ONCE ONE Ondansetron HCl 4 mg 03/20/25 15:21 03/20/25 15:56 Ondansetron 2 Mg/Ml Inj IVP 03/20/25 15:22 4 mg ONCE ONE Administration Medical Decision Making Lab Data Labs: Lab Results 03/20/25 Range/Units 16:05 WBC 12.63 H (4.50-11.00) K/uL RBC 5.32 (4.30-5.90) m/uL Hgb 15.8 (13.5-17.5) gm/dL Hct 46.5 (37.0-53.0) % MCV 87 (80-100) fL MCH 30 (26-34) pg MCHC 34 (32-36) gm/dL RDW Coeff of Gonzalez 12.0 (11.5-15.5) % Plt Count 358 (140-440) K/uL Neut % (Auto) 82.4 H (42.0-72.0) % Lymph % (Auto) 8.2 L (20-44) % Bailey % (Auto) 8.9 (0.0-11.0) % Eos % (Auto) 0.1 (0.0-7.0) % Baso % (Auto) 0.2 (0.0-3.0) % Neut # (Auto) 10.40 H (1.7-7.0) K/uL Lymph # (Auto) 1.00 (0.90-2.90) K/uL Bailey # (Auto) 1.10 H (0.00-0.90) K/UL Eos # (Auto) 0.00 (0.00-0.50) K/uL Baso # (Auto) 0.00 (0.00-0.30) K/uL Abs Immat Gran (auto) 0.00 (0.00-0.30) K/uL Imm/Tot Granulo (auto) 0.2 % Sodium 137 (135-149) mmol/L Potassium 3.5 L (3.6-5.1) mmol/L Chloride 100 (96-114) mmol/L Carbon Dioxide 25 (20-32) mmol/L Anion Gap 12 (7-15) mEq/L BUN 12 (5-24) mg/dL Creatinine 1.0 (0.5-1.5) mg/dL Estimated Creat Clear 109.86 Estimated GFR 97 ml/min Glucose 99 (60-115) mg/dL Calcium 9.6 (8.4-10.6) mg/dL C-Reactive Protein 12.4 H (0.5-1.0) mg/dL Discharge Plan Discharge Clinical Impression: Peritonsillar abscess Patient Disposition: XFER to OR Condition: Stable
[2025-03-20] MEDS: ONDANSETRON 2 MG/ML inj 4 MG IVP (15:56)
[2025-03-20] MEDS: 0.9 % SODIUM CHLORIDE 1000 ml 1,000 ML IV (15:57)
[2025-03-20 16:16] LABS: Basophils Percent Auto 0.2 % (0.0-3.0); Eosinophils Percent Auto 0.1 % (0.0-7.0); Hematocrit 46.5 % (37.0-53.0); Hemoglobin* 15.8 gm/dL (13.5-17.5); Immature Granulocytes Pct Auto 0.2 %; Lymphocytes Percent Auto 8.2 % (20-44); Mean Corpuscular HGB Conc 34 gm/dL (32-36); Mean Corpuscular Hemoglobin 30 pg (26-34); Mean Corpuscular Volume 87 fL (80-100); Monocytes Percent Auto 8.9 % (0.0-11.0); Neutrophils Percent Auto 82.4 % (42.0-72.0); Platelet Count* 358 K/uL (140-440); Red Blood Count 5.32 m/uL (4.30-5.90); White Blood Count* 12.63 K/uL (4.50-11.00)
--- NOTE | 2025-03-20 16:24 | P.ENTCN_ITS ---
HPI- ENT Consult Date of Consult Date Seen: 03/20/25 Patient: Other Consult date: 03/20/25 Requesting Physician: Other Primary Care Provider: Not a Local Provider Consult Narrative Reason for consult: Left peritonsillar abscess Narrative: Cedric Winn is a 39 year old male who has history of 2 previous peritonsi llar abscesses now presents with a left peritonsillar abscess. Has significant trismus CT was ordered but that was not yet done. Given the status of his upper airway I would prefer to go ahead and drain now rather than wait for a scan. Most recent abscess was in 2022. [facility] Medical History (Updated 03/20/25 @ 16:26 by Manny Reynaga MD) Peritonsillar abscess ?J36 - Peritonsillar abscess (ICD-10) Surgical History S/P left inguinal hernia repair ?Z98.890 - Other specified postprocedural states (ICD-10) ?Z87.19 - Personal history of other diseases of the digestive system (ICD-10) History of peritonsillar abscess drainage ?Z98.890 - Other specified postprocedural states (ICD-10) Social History Smoking Status: Never smoker Do you use any of these nicotine containing products: None Second hand tobacco smoke exposure: No How often do you have a drink containing alcohol: never AUDIT-C Alcohol total score: 0 Non-prescribed substance use: denies use service: No Meds Home Medications and Allergies Home Medications ?Medication ?Instructions ?Recorded ?Confirmed ?Type levetiracetam 1,000 mg tablet 1,500 mg PO Q12H 02/17/23 03/20/25 History lamotrigine 100 mg tablet 100 mg PO BID 01/04/25 03/20/25 History amoxicillin 875 mg-potassium 1 tab PO BID 10 days #20 tabs 03/15/25 03/20/25 Rx clavulanate 125 mg tablet Allergies Allergy/AdvReac Type Severity Reaction Status Date / Time No Known Drug Allergies Allergy Verified 03/20/25 16:23 Exam Narrative: Exam Narrative: Exam insert general obvious distress muffled voice but no pain in the laryngeal region. Oral cavity oropharynx reveals large bulge left supra tonsillar region soft palate extending down and to along the upper left tonsil. Right tonsil is enlarged but not of does not appears inflamed. He has no difficulty breathing neck parotid thyroid unremarkable Const: Vital Signs, click to edit/add: Vital Signs - 24 hr 03/20/25 15:07 Temperature 100.0 F H Pulse Rate [Pulse Oximeter] 99 Respiratory Rate 16 Blood Pressure [Ri ght Upper Arm] 166/94 H Pulse Oximetry 96 Oxygen Delivery Me thod Room Air Assessment and Plan Assessment and plan (1) Peritonsillar abscess: Status: Acute Plan Assessment left peritonsillar abscess with impingement on upper oral airway but not lower airway. Options and risks reviewed with him I would favor incision and drainage. 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 Risks include anesthesia bleeding recurrence etc. as well as injury to adjacent structures
[2025-03-20 16:27] LABS: Slide Review Reflex No
[2025-03-20] MEDS: LACTATED RINGERS 1000 ML 1,000 ML 35 ML IV (16:27)
[2025-03-20 16:29] LABS: Chloride* 100 mmol/L (96-114); Potassium* 3.5 mmol/L (3.6-5.1); Sodium* 137 mmol/L (135-149)
[2025-03-20 16:33] LABS: Anion Gap 12 mEq/L (7-15); Blood Urea Nitrogen* 12 mg/dL (5-24); Calcium* 9.6 mg/dL (8.4-10.6); Carbon Dioxide* 25 mmol/L (20-32); Est. Creatinine Clearance* 109.86; Estimated Glomerular Filt Rate 97 ml/min; Glucose* 99 mg/dL (60-115)
[2025-03-20 16:48] LABS: C Reactive Protein* 12.4 mg/dL (0.5-1.0)
--- NOTE | 2025-03-20 16:54 | W.PM.ENTPROC ---
Procedure Note Date of procedure: 03/20/25 Procedure: Preop diagnosis left peritonsillar abscess Postoperative diagnosis same Procedure incision drainage left peritonsillar abscess with irrigation and culture Under general endotracheal anesthesia patient was prepped and draped in usual fashion. The lower airways inspected and found to be normal. Both tonsils were enlarged. Incision was made with a needlepoint cautery left lateral superior tonsil pillar. A 1 cm incision was made. Blunt dissection was then used to immediately enter the abscess which is almost grossly visible through the mucosa. Culture was obtained. The incision was widened and the Yankauer suction placed in all the purulent fluid removed. The cavity was irrigated copiously with normal saline 40 mL. Bleeding was controlled with suction cautery. The very tip of the uvula was amputated as it was cellulitic. The patient was extubated the operating room taken recovery in satisfactory condition. Blood loss was 20 mL. Surgeon: Ale Decker MD
--- NOTE | 2025-03-20 17:07 | P.ANES_ITS ---
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
--- NOTE | 2025-03-20 17:07 | W.ANESCHARGE ---
Anesthesia Charges Start Date/Time Anesthesia Start Date: 03/20/25 Anesthesia Start Time: 16:27 Stop Date/Time Anesthesia Stop Date: 03/20/25 Anesthesia Stop Time: 17:01 Summary Emergency: BREAST TRIMMER Coding CPT Codes CPT Codes: ANESTH PROCEDURE ON MOUTH - 76848 ([id number]) P2 - PATIENT W/MILD SYST DISEASE, QZ - BREAST TRIMMER SVC W/O PACKAGING TECHNICIAN BY Additional Codes: Summary - Emergency: BREAST TRIMMER ([id number])
--- OUTSIDE RECORDS SUMMARY | 2025-03-20 17:57 | XMS_ITS | Clinical Summary ---
Author Organization [facility] Address [address] [place] [id number] Care Team Providers Care Costing Analyst Name Role Phone Xavi Rondon MD Primary [...] on file Legal Sex Male 3:09 AM EVS TECH Gender Identity Not on file Sexual Orientation [...] (185 lb 10 oz) 12/26/2017 3:00 AM EVS TECH Height 185.4 cm (6' 1) 12/26/2017 1:08 AM EVS TECH Body Mass Index 24.49 12/26/2017 1:08 AM EVS TECH Plan of Treatment Health Maintenance Due Date Last Done Comments ADVANCE CARE PLANNING 1983 ANNUAL REVIEW OF HM ORDERS 1983 YEARLY PREVENTIVE VISIT 1986 DTAP/TDAP/TD IMMUNIZATION (2 - Tdap) 12/17/1995 12/16/1995 HIV SCREENING 1998 HEPATITIS C SCREENING 2001 LIPID 2023 COVID-19 Vaccine ( season) 2024 PHQ-2 (once per calendar year) 2024 DIABETES SCREENING 06/12/2025 06/12/2022, 0 12/26/2017, 12/26/2017, Additional history exists INFLUENZA VACCINE (Season Ended) 2025 ZOSTER IMMUNIZATION (1 of 2) 2033 HEPATITIS B IMMUNIZATION Completed 001, 07/02/2000, 06/03/2000 [...] - 145 mmol/L 06/12/2022 7:27 PM CDT [facility] Potassium 4.0 3.4 - 5.3 mmol/L 06/12/2022 7:27 PM CDT [facility] Comment:Specimen slightly he molyzed, potassium may be falsely elevated. Creatinine 0.74 0.67 - 1.17 mg/dL 06/12/2022 7:27 PM [facility] Urea Nitrogen 15.2 6.0 - 20.0 mg/dL 06/12/2022 7:27 PM [facility] Chloride 102 98 - 107 mmol/L 06/12/2022 7:27 PM [facility] Carbon Dioxide (CO2) 23 22 - 29 mmol/L 06/12/2022 7:27 PM [facility] Anion Gap 14 7 - 15 mmol/L 06/12/2022 7:27 PM [facility] Glucose 124(H) 70 - 99 mg/dL [...] includes age and gender (Adam et al., NEJ, DOI: [email or web address]/[id number]) Blood STRUCTURE OF RIGHT UPPER LIMB / Unknown Venipuncture / Unknown 06/12/2022 6:51 PM CDT 06/12/2022 6:54 PM CDT us Moustapha Amado PA-C LAB - BLOOD ORDERABLES Final Result [facility] [address] Lab (1st floor, no room number) [place] [address], [facility] [phone] from Last 3 Months or Most Recently Relevant to Health Maintenance Insurance [facility] Advance Directives For more information, please contact: [phone] * Full Code (Latest Code Status on File) Date Activated Date Inactivated Comments 12/26/2017 3:50 AM 12/26/2017 6:08 PM * Full Code Date Activated Date Inactivated Comments 05/20/2017 9:41 PM 05/23/2017 5:57 PM Care Teams Costing Analyst Relationship Specialty Start Date End Date Xavi Rondon MD PCP - General 10/10/17
--- OUTSIDE RECORDS SUMMARY | 2025-03-20 17:57 | XMS_ITS | Clinical Summary ---
Author Organization [facility] Address [address] [place] [address] Care Team Providers Care Commercial Lines Manager Name Role Phone Pcp, No Primary Care Provider Unavailabl e Allergies No known active allergies Medications levETIRAcetam (KEPPRA) 500 mg tablet Take 2,000 mg by mouth. 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 PCP - General 10/16/23
[2025-03-20] MEDS: OXYCODONE 1 MG/ML ORAL SOLN 5 MG PO (19:53)
[2025-03-20] MEDS: LACTATED RINGERS 1000 ML 1,000 ML 30 ML IV (20:58)
[2025-03-20] MEDS: IBUPROFEN 100 MG/5 ML SUSP 200 MG PO (22:01)
[2025-03-20] MEDS: lamoTRIgine 100 MG TABLET PO (23:02)
[2025-03-20] MEDS: levETIRAcetam 500 MG TABLET 3500 MG PO (23:02)
[2025-03-20] MEDS: AMPICILLIN/SULBACTAM 3 GM in 0.9 % SODIUM CHLORIDE Mini-bag 100 ML IVPB (23:04)
[2025-03-21 02:12] VITALS: BP 142/76; PULSE 71; RESP 18; TEMP 37.2; O2SAT 97
[2025-03-21] MEDS: AMPICILLIN/SULBACTAM 3 GM in 0.9 % SODIUM CHLORIDE Mini-bag 100 ML IVPB (05:10)
--- NOTE | 2025-03-21 05:37 | PC.NURSE ---
Shift note ([id number]): Patient pleasant, alert and oriented. Up out of bed x1 to the bathroom. Stand by assist at that time. Denied any lightheadedness or dizziness. Tolerating water and ice chips. Was offered soft foods, however he declined. Took PO medications one at a time with breaks in between. Given. Oxycodone and Ibuprofen for pain rated 4-6/10.?
[2025-03-21 07:00] VITALS: BP 140/83; PULSE 74; RESP 16; TEMP 37.5; O2SAT 96
--- NOTE | 2025-03-21 07:25 | PC.NURSE ---
[id number] shift note continued: Patient tolerated 50% of an ice cream cup. He is eating applesauce at this time.
[2025-03-21] MEDS: IBUPROFEN 100 MG/5 ML SUSP 200 MG PO (07:42)
[2025-03-21] MEDS: lamoTRIgine 100 MG TABLET PO (08:46)
[2025-03-21] MEDS: levETIRAcetam 500 MG TABLET 1500 MG PO (08:47)
[2025-03-21] MEDS: SODIUM CHLORIDE 0.9 % (FLUSH) 10 ML SYRINGE IVF (08:52)
--- NOTE | 2025-03-21 10:04 | PC.NURSE ---
Discharge note: VSS. Afebrile. Rates pain a 4/10, prn ibuprofen and ice offered and given with relief. Ambulates independently in room. Tolerating regular diet, denies nausea. IV removed and tip intact. Pt discharged at 0953 via ambulation to home. Discharge instructions and pt belongings sheet gone through and signed.
== END 2025-03-21 09:53 | disposition home or self-care (01) ==
LOC: ED 16:29 → SS 16:47 → MEDSURG 17:36
PROVIDERS: Emergency Provider Emergency Medicine; Visit Provider Otolaryngology
PROC: 0C9PXZZ Drainage of Tonsils, External Approach (ICD-10-PCS; CPT 42700; principal; 2025-03-20 16:30)
DX: J36 Peritonsillar abscess (principal)
CPT/HCPCS: 42700; 00170; 36415; 80048; 85025; 86140; 87070; 87075; 87205; 99140; 99284; 99285; A9270; J0295; J0330; J1100; J2270; J2405; J2704; J3010; J7030; J7120

== ENCOUNTER 2025-10-14 10:41 | Day surgery (SDC) | payer BC, SELFPAY ==
[2025-10-14] VITALS (18 sets, daily range): BP systolic 120–182; BP diastolic 74–121; PULSE 58–75; RESP 16–20; TEMP 36.3–37.3; O2SAT 94–98; BMI 25.9
[2025-10-14] MEDS: LACTATED RINGERS 1000 ML 1,000 ML 100 ML IV (11:05)
[2025-10-14] MEDS: SODIUM CHLORIDE 0.9 % (FLUSH) 10 ML SYRINGE IVF (11:05)
--- NOTE | 2025-10-14 12:51 | W.PM.ENTPROC ---
Procedure Note Date of procedure: 10/14/25 Procedure: Preop diagnosis chronic tonsillitis, history left peritonsillar abscess Postop same Procedure tonsillectomy Under general trach anesthesia patient was prepped draped usual fashion. The McIvor mouth gag was inserted the tongue retracted forward. The right tonsil was with a combination of needlepoint bipolar cautery. Bleeding was controlled with suction cautery. This was repeated on the left side. On the left side that the previous abscess cavity was encountered but pose no difficulties. After meticulous hemostasis was achieved the patient was extubated the operating room taken recovery in satisfactory condition. Blood loss was 30 mL. Surgeon: Manny Reynaga MD
--- NOTE | 2025-10-14 13:00 | P.ANES_ITS ---
Anesthesia Charges Start Date/Time Anesthesia Start Date: 10/14/25 Anesthesia Start Time: 12:16 Stop Date/Time Anesthesia Stop Date: 10/14/25 Anesthesia Stop Time: 13:01 Coding CPT Codes CPT Codes: ANESTH PROCEDURE ON MOUTH - 81058 ([id number]) P2 - PATIENT W/MILD SYST DISEASE, QK - INSTRUCTIONAL SYSTEMS DESIGN CONSULTANT 2-4 CNCRNT ANES PROC
--- NOTE | 2025-10-14 13:00 | W.ANESCHARGE ---
Anesthesia Charges Start Date/Time Anesthesia Start Date: 10/14/25 Anesthesia Start Time: 12:16 Stop Date/Time Anesthesia Stop Date: 10/14/25 Anesthesia Stop Time: 13:01 Coding CPT Codes CPT Codes: ANESTH PROCEDURE ON MOUTH - 06548 ([id number]) P2 - PATIENT W/MILD SYST DISEASE, QK - MEDICAL ORDERLY 2-4 CNCRNT ANES PROC
[2025-10-14] MEDS: LABETALOL HCL 5 MG/ML inj IVP ×2 (13:34→13:42)
--- NOTE | 2025-10-14 13:49 | P.ANES_ITS ---
Anesthesia Charges Start Date/Time Anesthesia Start Date: 10/14/25 Anesthesia Start Time: 12:16 Stop Date/Time Anesthesia Stop Date: 10/14/25 Anesthesia Stop Time: 13:01 Coding CPT Codes CPT Codes: ANESTH PROCEDURE ON MOUTH - 04483 ([id number]) QK - SUPERVISOR PRINTING SHOP 2-4 CNCRNT ANES PROC, QX - INDUSTRIAL EDUCATION TEACHER SVC W/ MD MED DIRECTION, P2 - PATIENT W/MILD SYST DISEASE
--- NOTE | 2025-10-14 13:49 | W.ANESCHARGE ---
Anesthesia Charges Start Date/Time Anesthesia Start Date: 10/14/25 Anesthesia Start Time: 12:16 Stop Date/Time Anesthesia Stop Date: 10/14/25 Anesthesia Stop Time: 13:01 Coding CPT Codes CPT Codes: ANESTH PROCEDURE ON MOUTH - 71797 ([id number]) QK - LEAD TANK MECHANIC 2-4 CNCRNT ANES PROC, QX - CLINICAL RESEARCH ASSOCIATE SVC W/ MD MED DIRECTION, P2 - PATIENT W/MILD SYST DISEASE
[2025-10-14] MEDS: IBUPROFEN 100 MG/5 ML SUSP 200 MG PO (14:25)
== END 2025-10-14 15:14 | disposition home or self-care (01) ==
LOC: OR 10:41
PROVIDERS: PCP Family Medicine; Visit Provider Otolaryngology
PROC: (CPT 42826; principal; 2025-10-14 12:15)
DX: J35.01 Chronic tonsillitis (principal)
CPT/HCPCS: 42826; 00170; A9270; J0330; J1100; J1171; J2250; J2405; J2704; J3010; J7120